=== PATIENT | female | born 1995 | race Caucasian/White ===

== ENCOUNTER 2020-09-10 09:26 | Emergency (ER) | payer SELFPAY ==
[~2020-09-10] VITALS: Ht 172.7 cm; Wt 63.5 kg
--- NOTE | 2020-09-10 09:39 | NUR ---
DR Renee at the bedside for MSE.
[2020-09-10 09:50] VITALS: BP 117/74
--- NOTE | 2020-09-10 09:51 | NUR ---
Patient discharged to home in stable condition. Written and verbal after care instructions given. Patient verbalizes understanding of instructions. Stressed follow up or return to ER for worsening s/s.
== END 2020-09-10 09:51 | disposition home or self-care (01) ==
LOC: ER 09:26
DX: S93.401A Sprain of unspecified ligament of right ankle, initial encounter (principal); T74.21XA Adult sexual abuse, confirmed, initial encounter; Y92.89 Other specified places as the place of occurrence of the external cause
CPT/HCPCS: A4663